=== PATIENT | male | born 2000 | race Two or more races ===

== ENCOUNTER 2022-08-03 13:14 | Emergency (ER) | payer OTHER ==
[~2022-08-03] VITALS: Ht 185.4 cm; Wt 91.0 kg
[2022-08-03 14:00] LABS: Basophils # (auto) 0.1 10 ^3/uL (0-0.2); Basophils % (auto) 1.1 % (0.0-2.0); Eosinophils # (auto) 0.2 10 ^3/uL (0-0.8); Eosinophils % (auto) 2.3 % (0.0-7.0); Hemoglobin 16.5 g/dL (13.5-17.5); Lymphocytes # (auto) 2.3 10 ^3/uL (0.4-5.4); Lymphocytes % (auto) 30.5 % (10.0-50.0); Mean Corpuscular Hemoglobin 28.5 pg (28.0-32.0); Mean Corpuscular Volume 86.4 fL (80.0-100.0); Monocytes # (auto) 0.6 10 ^3/uL (0-1.3); Monocytes % (auto) 8.4 % (0.0-12.0); Neutrophils # (auto) 4.3 10 ^3/uL (1.6-8.6); Neutrophils % (auto) 57.7 % (37.0-80.0); Nucleated Red Blood Cells % 0.1 %; Red Blood Cells 5.79 10^6/uL (4.5-5.90); Red Cell Distribution Width 14.1 % (11.8-14.3); White Blood Cell 7.4 10^3/uL (4.4-10.8)
[2022-08-03 14:23] LABS: Albumin 4.6 g/dL (3.4-5.0); Calcium 9.3 mg/dL (8.5-10.1); Potassium 4.2 mmol/L (3.5-5.1)
[2022-08-03 14:33] LABS: BUN/Creatinine Ratio 17.9; Total Protein 7.8 g/dL (6.4-8.2)
[2022-08-03 16:50] LABS: Urine Amorphous Crystal MOD /hpf (None Seen); Urine Bacteria NONE SEEN /hpf (None Seen); Urine Blood Negative /uL (Negative); Urine Specific Gravity 1.022 (1.001-1.035); Urine WBC 2 /hpf (0 - 3)
[2022-08-03 17:22] VITALS: BP 145/78
== END 2022-08-03 17:24 | disposition home or self-care (01) ==
LOC: ER 13:14
DX: K42.9 Umbilical hernia without obstruction or gangrene (principal)
CPT/HCPCS: 36415; 74176; 80053; 81001; 85025

== ENCOUNTER 2023-01-01 04:43 | Emergency (ER) | payer OTHER ==
[~2023-01-01] VITALS: Ht 185.4 cm; Wt 97.5 kg
[2023-01-01 05:20] LABS: Basophils # (auto) 0.1 10 ^3/uL (0-0.2); Basophils % (auto) 1.1 % (0.0-2.0); Eosinophils # (auto) 0 10 ^3/uL (0-0.8); Eosinophils % (auto) 0.2 % (0.0-7.0); Hematocrit 47.7 % (41.0-53.0); Hemoglobin 16.5 g/dL (13.5-17.5); Lymphocytes # (auto) 1.6 10 ^3/uL (0.4-5.4); Lymphocytes % (auto) 16.6 % (10.0-50.0); Mean Corpuscular Hemoglobin 29.2 pg (28.0-32.0); Mean Corpuscular Hgb Conc. 34.7 g/dL (32.0-36.0); Mean Corpuscular Volume 84.4 fL (80.0-100.0); Monocytes % (auto) 9.6 % (0.0-12.0); Neutrophils # (auto) 7.2 10 ^3/uL (1.6-8.6); Neutrophils % (auto) 72.5 % (37.0-80.0); Nucleated Red Blood Cells % 0.1 %; Red Blood Cells 5.65 10^6/uL (4.5-5.90); Red Cell Distribution Width 13.8 % (11.8-14.3); White Blood Cell 9.9 10^3/uL (4.4-10.8)
[2023-01-01 05:34] LABS: Albumin 4.3 g/dL (3.4-5.0); Potassium 3.9 mmol/L (3.5-5.1)
[2023-01-01 05:38] LABS: BUN/Creatinine Ratio 13.3 (10.0-20.0); Bilirubin, Total 1.9 mg/dL (0.2-1.0); Total Protein 7.8 g/dL (6.4-8.2)
[2023-01-01] MEDS ORDERED: TRAM50TA2 PO (06:41)
[2023-01-01] MEDS ORDERED: traMADol HCL 50 MG TAB PO ONE (06:45)
[2023-01-01 07:33] VITALS: BP 124/80
== END 2023-01-01 07:48 | disposition home or self-care (01) ==
LOC: ER 04:43
DX: R07.89 Other chest pain (principal); F12.90 Cannabis use, unspecified, uncomplicated; Z98.890 Other specified postprocedural states
CPT/HCPCS: 36415; 71046; 80053; 84484; 85025; 93005